=== PATIENT | male | born 1995 | race African-American/Black ===

== ENCOUNTER 2023-08-13 14:23 | Emergency (ER) | payer BC ==
[2023-08-13] MEDS ORDERED: FLUORESCEIN SODIUM 1 MG/WRAP ONE (14:46)
[2023-08-13] MEDS ORDERED: TETRACAINE HCL 0.5% 5 ML OPTH ONE (14:46)
--- NOTE | 2023-08-13 14:49 | EDPHYS ---
Physician Documentation [facility] Name: Sofya Hess Age: 28 yrs Sex: Male : 1995 Arrival Date: 08/13/2023 Time: 14:23 Bed 11 Private MD: ED Physician Pete Franks HPI: 08/13 14:46 This 28 yrs old Black Male presents to ER via Unassigned with complaints of Foreign rn Body In Eye. 14:46 The patient is experiencing foreign body sensation, to the left eye, caused by metal rn fragment. Onset: The symptoms/episode began/occurred 1 week(s) ago. Aggravated by blinking, Alleviated by nothing. Severity of symptoms: At their worst the symptoms were moderate in the emergency department the symptoms are unchanged. The patient has not experienced similar symptoms in the past. Patient reports working underneath both about a week ago when he thinks a piece of metal or rust fell into his left eye. Has had foreign body sensation since then and watery eye. No loss of vision or change in vision. Was not a high-speed injury.. Historical: - Allergies: 15:00 No Known Allergies; tl4 - Home Meds: 15:00 None [Active]; tl4 - PMHx: 15:00 None; tl4 - Immunization history:: Adult Immunizations up to date. - Family history:: not pertinent. - Social history:: Smoking status: Patient reports the use of cigarette tobacco products, smokes one-half pack cigarettes per day. - Hospitalizations: : No recent hospitalization is reported. ROS: 14:46 Constitutional: Negative for fever, chills, and weight loss, Eyes: Positive for foreign rn body sensation left eye Exam: 14:46 Constitutional: This is a well developed, well nourished patient who is awake, alert, rn and in no acute distress. Eyes: Pupils equal round and reactive to light, extra-ocular motions intact. Visible metallic fragment left inferior cornea with rust ring. No asymmetry of the pupil. Negative Linus sign Vital Signs: 14:57 BP 123 / 72; Pulse 63; Resp 16; Temp 98.3(O); Pulse Ox 97% on R/A; Pain 2/10; tl4 15:07 BP 118 / 69; Pulse 65; Resp 16; Pulse Ox 98% on R/A; tl4 14:57 Pain Scale: Adult tl4 MDM: 14:26 Patient medically screened. rn 14:46 Differential diagnosis: Corneal abrasion of Corneal ulcer of Foreign body in. Data rn reviewed: vital signs, nurses notes, and as a result, I will discharge patient. Counseling: I had a detailed discussion with the patient and/or guardian regarding the historical points, exam findings, and any diagnostic results supporting the discharge/admit diagnosis, the need for outpatient follow up, to return to the emergency department if symptoms worsen or persist or if there are any questions or concerns that arise at home. Special discussion: I discussed with the patient/guardian in detail that at this point there is no indication for admission to the hospital. It is understood, however, that if the symptoms persist or worsen the patient needs to return immediately for re-evaluation. Based on the history and exam findings, there is no indication for further emergent testing or inpatient evaluation. I discussed with the patient/guardian the need to see the opthamologist for further evaluation of the symptoms. ED course: Apply tetracaine to left eye, irrigated and using wet cotton swab was able to remove metallic foreign body, tolerated procedure well, rust ring or abrasion still present and recommend ophthalmology follow-up for further care and evaluation.. Administered Medications: 15:06 Drug: Tetracaine Ophthalmic Drops 0.5 % 1 drops Ophthalmic once Route: Ophthalmic; cm10 Site: left eye; 15:06 Drug: Fluorescein Ophthalmic Strip 1 strip Ophthalmic once Route: Ophthalmic; Site: cm10 left eye; Disposition Summary: 08/13/23 14:49 Discharge Ordered Notes: Location: Home rn Problem: new rn Symptoms: have improved rn Condition: Stable rn Diagnosis - Foreign body in cornea, left eye rn Followup: rn - With: Bebe Cardoza MD - When: 1 - 2 days - Reason: Recheck today's complaints, Re-evaluation by your physician Discharge Instructions: - Discharge Summary Sheet rn - Eye Foreign Body rn Forms: - Medication Reconciliation Form rn - Thank You Letter rn - Antibiotic staff rn - Prescription Opioid Use rn - Patient Portal Instructions rn - Leadership Thank You Letter rn Prescriptions: - Vigamox 0.5 % Ophthalmic Drops - instill 1 drop OPHTHALMIC route every 8 hours for 7 days; 5 milliliter; rn Refills: 0, Product Selection Permitted Signatures: Pete Franks MD MD rn Martinez, Clarissa, RN RN cm10 [place], [place] tl4
--- NOTE | 2023-08-13 15:09 | ER ---
Nurse's Notes [facility] Name: Sofya Hess Age: 28 yrs Sex: Male : 1995 Arrival Date: 08/13/2023 Time: 14:23 Bed 11 Private MD: Diagnosis: Foreign body in cornea, left eye Presentation: 08/13 14:57 Chief complaint: Patient states: Pt states he has metal in his left eye. Pt c/o tl4 irritation and pain. Pt denies changes in vision. Coronavirus screen: Client denies travel out of the [place] in the last 14 days. At this time, the client does not indicate any symptoms associated with coronavirus-19. Ebola Screen: No symptoms or risks identified at this time. Initial Sepsis Screen: Does the patient meet any 2 criteria? No. Patient's initial sepsis screen is negative. Does the patient have a suspected source of infection? No. Patient's initial sepsis screen is negative. Risk Assessment: Do you want to hurt yourself or someone else? Patient reports no desire to harm self or others. Onset of symptoms was August 06, 2023. 14:57 Method Of Arrival: Ambulatory tl4 14:57 Acuity: FUAD 4 tl4 Triage Assessment: 14:59 General: Appears in no apparent distress. comfortable. tl4 Historical: - Allergies: 15:00 No Known Allergies; tl4 - Home Meds: 15:00 None [Active]; tl4 - PMHx: 15:00 None; tl4 - Immunization history:: Adult Immunizations up to date. - Family history:: not pertinent. - Social history:: Smoking status: Patient reports the use of cigarette tobacco products, smokes one-half pack cigarettes per day. - Hospitalizations: : No recent hospitalization is reported. Screenin:00 [facility] ED Fall Risk Assessment (Adult) History of falling in the last 3 months, tl4 including since admission No falls in past 3 months (0 pts) Confusion or Disorientation No (0 pts) Intoxicated or Sedated No (0 pts) Impaired Gait No (0 pts) Mobility Assist Device Used No (0 pt) Altered Elimination No (0 pt) Score/Fall Risk Level 0 - 2 = Low Risk Oriented to surroundings, Maintained a safe environment, Provided non-skid footwear, Hourly rounding (assess needs \T\ fall precautionary measures) done, Used gait belt as appropriate. Abuse screen: Denies threats or abuse. Denies injuries from another. Nutritional screening: No deficits noted. Tuberculosis screening: No symptoms or risk factors identified. Assessment: 14:55 General: Appears in no apparent distress. comfortable, Behavior is calm, cooperative. tl4 Pain: Complains of pain in left eye. Neuro: No deficits noted. Cardiovascular: No deficits noted. Respiratory: No deficits noted. GI: No deficits noted. No signs and/or symptoms were reported involving the gastrointestinal system. : No deficits noted. No signs and/or symptoms were reported regarding the genitourinary system. EENT: Reports pain in left eye irritation to left eye due to foreign body. Vital Signs: 14:57 BP 123 / 72; Pulse 63; Resp 16; Temp 98.3(O); Pulse Ox 97% on R/A; Pain 2/10; tl4 15:07 BP 118 / 69; Pulse 65; Resp 16; Pulse Ox 98% on R/A; tl4 14:57 Pain Scale: Adult tl4 ED Course: 14:24 Patient arrived in ED. mr 14:26 Pete Franks MD is Attending Physician. rn 14:48 Bebe Cardoza MD is Referral Physician. rn 14:59 Triage completed. tl4 15:00 Arm band placed on right wrist. tl4 15:01 Patient has correct armband on for positive identification. Bed in low position. Call tl4 light in reach. Side rails up X 1. Provided Education on: ER. 15:01 No provider procedures requiring assistance completed. tl4 15:08 Patient did not have IV access during this emergency room visit. tl4 Administered Medications: 15:06 Drug: Tetracaine Ophthalmic Drops 0.5 % 1 drops Ophthalmic once Route: Ophthalmic; cm10 Site: left eye; 15:06 Drug: Fluorescein Ophthalmic Strip 1 strip Ophthalmic once Route: Ophthalmic; Site: cm10 left eye; Medication: 15:01 VIS not applicable for this client. tl4 Outcome: 14:49 Discharge ordered by . rn 15:08 Discharged to home ambulatory, tl4 15:08 Condition: good 15:08 Discharge instructions given to patient, Instructed on discharge instructions, medication usage, 15:09 Patient left the ED. tl4 Signatures: Ml Hollis, Reg Reg mr FranksPete davis MD MD rn Martinez, Clarissa, RN RN cm10 [place] 4
[2023-08-13 15:13] VITALS: TEMP 98.3
[2023-08-13 15:14] VITALS: BP 118/69; O2SAT 98
== END 2023-08-13 15:09 | disposition home or self-care (01) ==
LOC: ER 14:23
PROC: 08C9XZZ Extirpation of Matter from Left Cornea, External Approach (ICD-10-PCS; principal; 2023-08-13)
DX: T15.02XA Foreign body in cornea, left eye, initial encounter (principal); F17.210 Nicotine dependence, cigarettes, uncomplicated
CPT/HCPCS: 99283